=== PATIENT | male | born 1955 | race Caucasian/White ===

== ENCOUNTER 2024-07-07 13:43 | Outpatient (CLI) | payer MEDICARE, SELFPAY ==
[2024-07-07 14:24] LABS: Basophils Absolute Auto 0.1 K/mm3 (0.0-0.1); Basophils Percent Auto 0.8 % (0.2-1.2); Eosinophils Absolute Auto 0.2 K/mm3 (0-0.3); Eosinophils Percent Auto 2.4 % (0-4.4); Hematocrit 36.6 % (42.0-52.0); Hemoglobin 12.6 g/dL (14.0-18.0); Immature Granulocyte Absolute 0.02 K/mm3 (0.00-0.031); Immature Granulocyte Percent A 0.3 % (0-0.5); Lymphocytes Absolute Auto 1.53 K/mm3 (0.9-3.2); Lymphocytes Percent Auto 23.3 % (18.3-44.2); Mean Corpuscular HGB Conc 34.4 g/dl (32-36); Mean Corpuscular Hemoglobin 31.6 pg (26-34); Mean Corpuscular Volume 91.7 fl (80-100); Mean Platelet Volume 10.5 fl (7.4-10.4); Monocytes Absolute Auto 0.8 K/mm3 (0.1-0.6); Monocytes Percent Auto 12.6 % (2.6-8.5); Neutrophils Percent Auto 60.6 % (45.5-73.1); Platelet Count Result 181 k/mm3 (150-375); Red Blood Count 3.99 M/mm3 (4.6-6.20); Red Cell Distribution Width 13.8 % (11.5-14.5); White Blood Count 6.6 K/mm3 (4.5-10.0)
[2024-07-07 14:41] LABS: Alanine Aminotransferase 33 U/L (6-50); Albumin Level 4.2 g/dL (3.5-5.1); Alkaline Phosphatase 53 U/L (38-126); Anion Gap 7 mmol/L (4-12); Aspartate Amino Transferase 35 U/L (17-59); Bilirubin,Total 0.4 mg/dL (0.2-1.3); Blood Urea Nitrogen 14 mg/dL (9-20); Calcium 9.4 mg/dL (8.4-10.2); Carbon Dioxide 35 mmol/L (22-30); Chloride 93 mmol/L (98-107); Estimated Glomerular Filt Rate > 60; Glucose 95 mg/dL (65-110); Potassium 3.6 mmol/L (3.4-5.0); Sodium 135 mmol/L (137-145)
== END 2024-07-07 13:44 | disposition home or self-care (01) ==
PROVIDERS: PCP Internal Medicine; Visit Provider Psychiatry & Neurology Neurology
DX: G40.909 Epilepsy, unspecified, not intractable, without status epilepticus (principal)
CPT/HCPCS: 36415; 80053; 80184; 85025

== ENCOUNTER 2025-05-25 09:42 | Emergency (ER) | payer MEDICARE, SELFPAY ==
--- NOTE | ~2025-05-25 | XR_ITS ---
XR chest 2V Ordering provider: Riaz Justice History: 70 years Male with . Weakness . Comparison: None. FINDINGS: MEDIASTINUM: The cardiac silhouette is not enlarged. LUNGS: No infiltrates, effusions or pneumothorax. OTHER: No free air under the diaphragm. Degenerative changes of the spine. IMPRESSION: No acute cardiopulmonary pathology. Reviewed, dictated and finalized at location A.
--- NOTE | ~2025-05-25 | CT_ITS ---
CT brain wo con Ordering provider: Filiberto Snider MD History: 70 years Male with . presyncope . Comparison: None. Technique: CT of the head without contrast. Radiation reduction technique utilized.The dose-length product was 605.33 mGy-cm. FINDINGS: BRAIN PARENCHYMA AND CSF SPACES: Mild leukoaraiosis and diffuse cortical atrophy. Mild atheromatous d isease. No midline shift, mass effect or hemorrhage. The brain parenchyma and CSF spaces are otherwi se normal. VISUALIZED PARANASAL SINUSES: Well aerated. Left nasal septal deviation. MASTOIDS: Well aerated. BONES: The bones appear intact. SOFT TISSUES: Visualized nasopharynx is normal. Superficial soft tissues are normal. IMPRESSION: No acute intracranial findings. Reviewed, dictated and finalized at location A.
[2025-05-25 09:45] VITALS: BP 119/70; PULSE 56; RESP 19; TEMP 36.6; O2SAT 97
--- NOTE | 2025-05-25 11:42 | ECG_ITS ---
Test Date: 2025-05-25 11:47:40 Measurements Intervals Delight Rate: 50 P: 22 TX: 221 QRS: 12 QRSD: 128 T: 55 QT: 442 QTc: 405 Interpretive Statements SINUS BRADYCARDIA WITH FIRST DEGREE AV BLOCK MINIMAL Q WAVES- LAT/HIGH LAT LEADS CONSIDER INFERIOR INFARCT, AGE INDETERMINATE ABNORMAL ECG No previous ECG available for comparison Electronically Signed On 05-25-2025 11:53:23 CDT by Agustin Fay D.O.
[2025-05-25 11:45] VITALS: BP 133/75; PULSE 52; RESP 17; O2SAT 98
--- OUTSIDE RECORDS SUMMARY | 2025-05-25 12:31 | XMS_ITS | Encounter Summary ---
Author Organization [facility] Address [address] [place] [address] Phone Care Team Providers Care Visualizer Name Role Phone De Ruffin MD Primary Care Provider [phone] Kranthi Vieira MD Unavailable [phone] Reason for Visit * Reason Onset Date Comments Preclinic labwork 05/25/2025 Encounter Details Date Type Department Care Team (Late st Contact Info) Description 05/25/2025 Telephone [facility] Cardiology [address] [place] [address] Kranthi Vieira MD [address] [address] Preclinic labwork Social History Tobacco Use Types Packs/Day Years Used Date Smoking Tobacco: Never Smokeless Tobacco: Former Chew Quit: 1973 Alcohol Use Standard Drinks/Week Comments No 0 (1 standard drink = 0.6 oz pur e alcohol) AUDIT-C Answer Date Recorded Q1: How often do you have a drink containing alcohol? Never 10/10/2024 Q2: How many drinks containi ng alcohol do you have on a typical day when you are drinking? Patient does not drink Frequency of Binge Drinking Not on file 09/26 Personal Safety Answer Date Recorded Have you ever been in or are you currently in a harmful physical or emotional relationship or is someone making you feel afraid or unsafe? 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 in [place] for blood work and lab order sent. * Telephone Encounter - Amira Delgado - 05/25/2025 10:35 AM CDT ----- Message from Nurse Amira Perdue sent at 06/05/2024 2:55 PM CDT ----- Pt is scheduled for 1yr ROV with Dr. Vieira 06/08/25. Dr. Vieira would like pt to have a FLP and BMP prior to his appt. Will need to contact pt to determine location and send orders. -Backplanet message sent to pt regarding requested labwork.-ks documented in this encounter Plan of Treatment Scheduled Procedures Name Priority Associated Diagnoses Date/Ti me ESOPHAGOGASTRODUODENOSCOPY Anemia, unspecified type documented as of this encounter Visit Diagnoses Not on filedocumented in this encounter Care Teams Visualizer Relationship Specialty Start Date End Date De Ruffin MD PCP - General Internal Medicine 09/19/18 Kranthi Vieira MD Consulting Physician Cardiovascular Disease 12/17/23 documented as of this encounter
--- OUTSIDE RECORDS SUMMARY | 2025-05-25 12:31 | XMS_ITS | Clinical Summary ---
Author Organization [facility] Address [address] [place] [address] Care Team Providers Care Drinking Water Technician Name Role Phone De Ruffin MD Primary Care Provider [phone] Source Comments [facility],non-owned Affiliates and Associated Physician Practices is amultiple site organization consisting of ambulatory clinics and hospital sitesin [place], [place], [place] and [place]. This disclosure is being madepursuant to the Care Everywhere program and may not contain all information available regarding this patient. Last updated 18.[facility] Allergies No known active allergies Medications * Be aware that medications may not be up to date on this document. Alwaysverify current medications with the patient. 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 Gender Identity Not on file Sexual Orientation Not on file Last Filed Vital Signs Vital Sign Reading Time Taken Comments Blood Pressure 138/84 08/07/2017 11:14 AM CDT Pulse 52 08/07/2017 11:14 AM CDT Temperature 37.2 C (99 F) 08/07/2017 11:14 AM CDT Respiratory Rate 16 08/07/2017 11:14 AM CDT Oxygen Saturation 99% 08/07/2017 11:14 AM CDT Inhaled Oxygen Concentration - - Weight 106.6 kg (235 lb) 08/07/2017 11:14 AM CDT Height 182.9 cm (6') 08/07/2017 11:14 AM CDT Body Mass Index 31.87 08/07/2017 11:14 AM CDT Plan of Treatment Health Maintenance Due Date Last Done Comments COLOGUARD (AGES 45-75) - COL ON CA SCREENING 1954 COLON MONITORING 1954 COLONOSCOPY - COLON CA SCREENING 1954 CT COLONOGRAPHY - COLON CA SCREENING 1954 Colorectal Cancer Screening 1954 FIT - COLON CA SCREENING 1954 FLEX SIG - COLON CA SCREENING 1954 LIPID TESTING 1954 HEPATITIS C SCREENING 05/13/1972 DTAP/TDAP/TD VACCINES (1 - Tdap) 1973 PNEUMOCOCCAL VACCINE 50+ (1 of 1 - PCV) 2004 ZOSTER VACCINE (1 of 2) 2004 SCREENING FOR DIABETES 08/07/2017 AAA SCREENING 2019 COVID-19 VACCINE ( - 2023-2 5 season) 2024 DEPRESSION SCREENING 11/26/2024 INFLUENZA VACCINE (Season Ended) 2025 Respiratory Syncytial Virus (RSV) Vaccine Pt: or over 60 yrs (1 - 1-dose 75+ series) 2029 HEPATITIS B VACCINE Aged Out No longe r eligible based on patient's age to complete this topic HIB VACCINE Aged Out No longer eligi ble based on patient's age to complete this topic HPV VACCINE Aged Out No longer eligi ble based on patient's age to complete this topic MENINGOCOCCAL (Group B) VACC INE SHARED DECISION-MAKING Aged Out No longer eligibl e based on patient's age to complete this topic MENINGOCOCCAL GROUPS A/C/Y/W VACCINE Aged Out No longer eligible b ased on patient's age to complete this topic Insurance [place] [address] ANTH Care Teams Drinking Water Technician Relationship Specialty Start Date End Date De Ruffin MD PCP - General Internal Medicine 12/04/16
--- OUTSIDE RECORDS SUMMARY | 2025-05-25 12:31 | XMS_ITS | Continuity of Care Document ---
Author Organization [facility] Address [address] [facility] [facility] [address] [facility] [address] [place] [address] Phone Care Team Providers Care Steam Cleaning Machine Operator Name Role Phone Brandon Hernandez MD Unavailable Unavailable Advance Directives Directive Yes / No Effective Date File Name No Information Encounters Encounter Description Practice Location Reason(s) For Visit Diagnoses Date Provider Providers Copied on Encounter [facility], [address], [place], [place], [id number], [place] tel:[phone] [facility] No Information [address] [facility] [address], [place], [place], [id number], [place]. tel:[phone] Family History Family Member Type Diagnosis Age At Onset No Information Payers Payer name Insurance type Covered democrat ID Authoriza tion(s) No Information Social History Type Description Quantity Date Captured Comments Sex Male Smoking Status No Information Chief Complaint And Reason For Visit No Information Reason For Referral Reason For Referral No Information History Of Present Illness Encounter Date Complaint History Of Prese nt Illness No Information Functional Status Date Functional Assessmen t No Information Instructions Date Instruction Additional Infor mation No Information Assessments Type Assessment Date No Information Patient Care Teams Name Effective Dates (start - stop) Status Members No Information
--- OUTSIDE RECORDS SUMMARY | 2025-05-25 12:31 | XMS_ITS | Encounter Summary ---
Author Organization [facility] Address [address] [place] [address] Phone Care Team Providers Care Mechanical Product Design Engineer Name Role Phone De Ruffin MD Primary Care Provider [phone] Kranthi Vieira MD Unavailable [phone] Encounter Details Date Type Department Care Team (Late st Contact Info) Description 05/25/2025 Orders Only [facility] Cardiology [address] [facility] [address] [place] [address] Kranthi Vieira MD [address] [address] Hyperlipidemia, unspecified hyperlipidemia type (Primary Dx); Coronary artery disease involving marshall coronary artery of 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 angina pectoris; Essential hypertension Social History Tobacco Use Types Packs/Day Years [...] on file 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 Gender Identity Not on file Sexual Orientation Not on file documented as of this encounter Plan of Treatment Scheduled Orders Name Type Priority Associated Diagnoses Orde r Schedule Lipid panel Lab Routine Hyperlipidemia, unspecified hyperlipidemia type Coronary artery disease involving marshall coronary artery of 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 angina pectoris Essential hypertension Expected: 05/28/2025, Expires: 05/25/2026 Basic metabolic panel Lab Routine Hyperlipidemia, unspecified hyperlipidemia type Coronary artery disease involving marshall coronary artery of 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 angina pectoris Essential hypertension Expected: 05/28/2025, Expires: 05/25/2026 Scheduled Procedures Name Priority Associated Diagnoses Date/Ti me ESOPHAGOGASTRODUODENOSCOPY Anemia, unspecified type documented as of this encounter Visit Diagnoses Diagnosis Hyperlipidemia, unspecified hyperlipidemia type- Primary Coronary artery disease involving marshall coronary artery of 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 angina pectoris Essential hypertension Unspecified essential hypertension documented in this encounter Care Teams Mechanical Product Design Engineer Relationship Specialty Start Date End Date De Ruffin MD PCP - General Internal Medicine 09/19/18 Kranthi Vieira MD Consulting Physician Cardiovascular Disease 12/17/23 documented as of this encounter
--- OUTSIDE RECORDS SUMMARY | 2025-05-25 12:32 | XMS_ITS | Clinical Summary ---
Author Organization [facility] Address [address] [place] [address] Care Team Providers Care Patient Account Representative Name Role Phone De Ruffin MD Primary Care Provider [phone] Kranthi Vieira MD Unavailable [phone] Allergies Active Allergy Reactions Criticality Noted Date Comments Gabapentin Other (See comments) Low 10/29/2018 Made very anxious Lisinopril Cough Low 11/08/2022 Medications PHENobarbital (LUMINAL) 64.8 mg tablet 2.5 tablets (162 mg total) daily 5 8 Active aspirin 81 mg tablet Take 1 tablet (81 mg total) by mouth daily Active multivit-min/foli c/vit K/lycop (MEN'S MULTIVITAMIN ORAL) Take by mouth daily. Active vitamin E acetate (VITAMIN E ORAL) Take by mouth daily. Active psyllium, aspartame, SF (METAMUCIL SF) 3.4 gram packet Take 1 packet by mouth daily Active melatonin 5 mg tablet 2 tablets (10 mg total) daily Active atorvastatin (LIPITOR) 80 mg tablet TAKE 1 TABLET BY MOUTH EVERY DAY 90 tablet 3 4 Active amLODIPine (NORVASC) 5 mg tablet TAKE 1 TABLET (5 MG TOTAL) BY MOUTH DAILY. 90 tablet 3 4 Active chlorthalidone (HYGROTON) 25 mg tablet Take 1 tablet (25 mg total) by mouth daily 90 tablet 3 4 Active potassium chloride ER 20 mEq CR tablet TAKE 1 TABLET BY MOUTH 2 TIMES A DAY. 180 tablet 3 5 Active azithromycin (ZITHROMAX) 250 mg tabletIndications :Lower respiratory infection (e.g., bronchitis, pneumonia, pneumonitis, pulmonitis) Take 2 tablets the first day, then 1 tablet daily for 4 days. 6 tablet 5 Active losartan (COZAAR) 25 mg tablet TAKE 1 TABLET (25 MG TOTAL) BY MOUTH DAILY. 90 tablet 3 5 01/12/20 26 Active nitroglycerin (NITROSTAT) 0.[address] 1 tablet (0.4 mg total) under the tongue every 5 (five) minutes as needed for chest pain 25 tablet 2 5 Active carvediloL (COREG) 25 mg tablet TAKE 1 TABLET BY MOUTH TWICE A DAY WITH FOOD 180 tablet 3 5 Active isosorbide mononitrate ER (IMDUR) 30 mg 24 hr tablet TAKE 1 TABLET BY MOUTH EVERY DAY 90 tablet 3 5 Active Active Problems Problem Noted Date Diagnosed Date BMI 33.0-33.9,adult 12/14/2022 History of colon polyps 08/05/2021 Overview (08/05/2021): Added automatically from request for surgery [id number] Anemia 07/25/2021 Overview (07/25/2021): Added automatically from request for surgery [id number] Hyperlipidemia 09/21/2020 Assessment & Plan (12/02/2024 9:29 AM FROG FARMER): Continue current medication. Assessment & Plan (01/25/2021 10:14 AM FROG FARMER): Lipid at target Coronary artery disease invo lving omaha coronary artery of omaha heart without angina pectoris 09/21/2020 Assessment & Plan (12/02/2024 9:30 AM FROG FARMER): Patient remains on statin, beta-mack, nitrates, and antiplatelet therapy. Will continue as before Assessment & Plan (01/25/2021 10:14 AM FROG FARMER): Stable and doing well with no chest Essential hypertension 09/21/2020 Assessment & Plan (12/02/2024 9:30 AM FROG FARMER): Bp at target, continue medication for target directed therapy Assessment & Plan (01/25/2021 10:14 AM FROG FARMER): Blood pressure at target doing well Obstructive sleep apnea of adult 03/06/2017 SOB (shortness of breath) Encounters Date Type Department Care Team Description 05/25/2025 Orders Only [facility] [address] [place] [address] [address] [place] [phone] Kranthi Vieira MD Hyperlipidemia, unspecified hyperlipidemia type (Primary Dx); Coronary artery disease involving omaha coronary artery of omaha heart without angina pectoris; Essential hypertension 05/25/2025 Telephone [facility] [address] [place] [address] [address] [place] [phone] Kranthi Vieira MD Preclinic labwork 04/08/2025 Results Follow-Up [facility] [address] [place] [phone] De Ruffin MD CBC with auto differential, Differential, auto 04/07/2025 10:48 AM CDT - 04/07/2025 11:59 PM CDT Hospital Encounter [facility] [address] [place] [address] Anemia, unspecified type Discharge Disposition: Discharge to home or self care 04/07/2025 10:45 AM CDT Lab [facility] Outpatient Lab at [address] [address] from Last 3 Months Immunizations Immunization Administration Dates Next Due Influenza, Quadrivalent, Hig h Dose, Preservative Free, Intrr 09/21/2020 Influenza, Trivalent, High D ose, Split, Preservative Free, Intramuscular 10/01/2019 Pneumococcal Conjugate Pcv20 11/14/2022 Zoster, unspecified 03/26/2023 Surgical History Surgery Date Site/Laterality Comments OTHER SURGICAL HISTORY skin grafts INCISION AND DRAINAGE PERIRECTAL ABSCESS CARDIAC STENT PLACEMENT COLONOSCOPY UPPER GASTROINTESTINAL ENDOSCOPY EYE SURGERY 2014 Medical History Medical History Date Comments LUCERO on CPAP Cancer (HCC) 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 Hypertension Seizures (HCC) Hyperlipidemia 09/21/2020 Anemia Coronary artery disease H/O heart artery stent Myocardial infarction (HCC) Colon polyp Heart disease 2018 Sleep difficulties 2000 Family History Medical History Relation Name Comments Colon cancer Daughter Cancer Father Frandy Clark Sr Colon cancer Father Frandy Clark Sr Lung cancer Father Frandy Clark Sr Snoring Father Frandy Clark Sr Cancer Sister Mari Clark Pancreatic cancer Sister Mari Clark Relation Name Status Comments Daughter Father Frandy Clark Sr Sister Mari Clark Social History Tobacco Use Types Packs/Day Years Used Date Smoking Tobacco: Never Smokeless Tobacco: Former Chew Quit: 1972 Tobacco Cessation:Counseling Given: Not Answered Alcohol Use Standard Drinks/Week Comments No 0 [...] on file Legal Sex Male 8:58 AM FROG FARMER Gender Identity Not on file Sexual Orientation Not on file Obstetrics History Last Filed Vital Signs Vital Sign Reading Time Taken Comments Blood Pressure 120/70 01/09/2025 9:55 AM FROG FARMER Pulse 63 01/09/2025 9:55 AM FROG FARMER Temperature 37.2 C (99 F) 01/09/2025 9:55 AM FROG FARMER Respiratory Rate 20 01/09/2025 9:55 AM FROG FARMER Oxygen Saturation 98% 01/09/2025 9:55 AM FROG FARMER Inhaled Oxygen Concentration - - Weight 114.3 kg (252 lb) 01/09/2025 9:55 AM FROG FARMER Height 182.9 cm (6') 01/09/2025 9:55 AM FROG FARMER Body Mass Index 34.18 01/09/2025 9:55 AM FROG FARMER Plan of Treatment Scheduled Procedures Name Priority Associated Diagnoses Date/Ti me ESOPHAGOGASTRODUODENOSCOPY Anemia, unspecified type Health Maintenance Due Date Last Done Comments Depression Screening 1955 Hepatitis B Screening 1972 Well Visit 65+ 2019 Covid-19 Vaccine (4 - 2023-2 5 season) 2024 11/11/2021, 02/11/2021, 01/07/2021 Fall Risk Assessment 10/10/2025 10/10/2024 DTaP/Tdap/Td Vaccine (2 - Td or Tdap) 03/26/2033 03/26/2023 Colon Cancer Screening-Colonoscopy 10/10/2034 10/10/2024, 10/09/2024, 09/02/2021, Additional history exists Abdominal Aortic Aneurysm (A AA) Screen Completed 07/23/2019 Pneumococcal vaccine 65+ Completed 11/14/2022 Zoster Vaccine Completed 03/26/2023, 01/01/2023 Influenza Vaccine Completed 10/02/2024, , 11/14/2022, Additional history exists Colon Cancer Screening-CT Colonography Discontinued 10/10/2024, 10/09/2024, 09/02/2021, Additional history exists Colon Cancer Screening-DNA Stool Discontinued 10/10/2024, 10/09/2024, 09/02/2021, Additional history exists Colon Cancer Screening-FIT Discontinued 10/10, 10/09/2024, 09/02/2021, Additional history exists Colon Cancer Screening-Sigmoidoscopy Discontinued 10/10/2024, 10/09/2024, 09/02/2021, Additional history exists Hepatitis C Screening Completed 12/02/2024 Prostate Cancer Screening-PSA Discontinued , 11/15/2023, 05/10/2022, Additional history exists Medical Devices Implanted Type Area Senior Marketing Associate Device Identifier Shelf Expiration Date Model / Serial / Lot [employer] [id number] Xience Viridiana 2.75mm 23mm Rapid Exchange System Coronary Stent - [id number] - [id number] Implanted:Qty: 1 on 10/08/2018 by Remy Burgos MD at [facility] [employer] 06/23/2019 [id number] / [id number] Procedures Procedure Name Priority Date/Time Associated Diagnosis Comments DIFFERENTIAL AUTO Routine 04/07/2025 10: 48 AM CDT Anemia, unspecified type CBC WITH AUTO DIFFERENTIAL Routine 04/07/2025 10:48 AM CDT Anemia, unspecified type HEPATITIS C ANTIBODY Routine 12/02/2024 9:55 AM FROG FARMER Mixed hyperlipidemia Coronary artery disease involving omaha coronary artery of omaha heart without angina pectoris Essential hypertension Obstructive sleep apnea of adult Encounter for hepatitis C screening test for low risk patient Screening for prostate cancer PSA SCREEN Routine 12/02/2024 9:55 AM FROG FARMER Mixed hyperlipidemia Coronary artery disease involving omaha coronary artery of omaha heart without angina pectoris Essential hypertension Obstructive sleep apnea of adult Encounter for hepatitis C screening test for low risk patient Screening for prostate cancer COLONOSCOPY 10/10/2024 6:[address] ABDOMEN PELVIS WO CONTRAST Schedule Routine, Read Routine (OP Routine) 07/23/2019 11:24 AM CDT Abdominal pain, unspecified abdominal location from Last 3 Months or Most Recently Relevant to Health Maintenance Results * Differential, auto (04/07/2025 10:48 AM CDT) Neutrophil abs 3.37 1.50 - 6.50 K/cumm Imm gran abs 0.01 0.00 - 0.10 K/cumm [facility] Lymphocyte abs 1.43 0.80 - 3.30 K/cumm [facility] Monocyte abs 0.63 0.20 - 0.80 K/cumm [facility] Eosinophil abs 0.12 0.00 - 0.50 K/cumm [facility] Basophil abs 0.06 0.00 - 0.10 K/cumm [facility] Neutrophil pct 60.0 % [facility] Comment: Interpretive Data Percent cell count reference ranges are not reported, since discordance with absolute values may lead to misinterpretation of CBC data. Current Interpretive Data was last revised on 2018. Imm gran pct 0.2 % [facility] Comment: Interpretive Data Percent cell count reference ranges are not reported, since discordance with absolute values may lead to misinterpretation of CBC data. Current Interpretive Data was last revised on 2018. Lymphocyte pct 25.4 % [facility] Comment: Interpretive Data Percent cell count reference ranges are not reported, since discordance with absolute values may lead to misinterpretation of CBC data. Current Interpretive Data was last revised on 2018. Monocyte pct 11.2 % [facility] Comment: Interpretive Data Percent cell count reference ranges are not reported, since discordance with absolute values may lead to misinterpretation of CBC data. Current Interpretive Data was last revised on 2018. Eosinophil pct 2.1 % [facility] Comment: Interpretive Data Percent cell count reference ranges are not reported, since discordance with absolute values may lead to misinterpretation of CBC data. Current Interpretive Data was last revised on 2018. Basophil pct 1.1 % [facility] Comment: Interpretive Data Percent cell count reference ranges are not reported, since discordance with absolute values may lead to misinterpretation of CBC data. Current Interpretive Data was last revised on 2018. Blood 04/07/2025 10:4 8 AM CDT 04/07/2025 5:44 PM CDT us De Ruffin MD LAB BLOOD ORDERABLES Final Re sult [facility] [address] Department [place] [address] * (ABNORMAL) CBC with auto differential (04/07/2025 10:48 AM CDT) WBC 5.62 3.80 - 9.90 K/cumm Hgb 13.6 13.0 - 17.5 g/dL [facility] Hct 40.6 38.9 - 50.3 % [facility] Plt 172 150 - 400 K/cumm [facility] MPV 11.3 9.1 - 12.3 fL [facility] RBC 4.30 4.30 - 5.80 M/cumm [facility] MCV 94.4 81.3 - 96.4 fL [facility] MCH 31.6 27.1 - 33.3 pg [facility] MCHC 33.5 32.3 - 35.7 g/dL [facility] RDW CV 13.9 11.1 - 14.9 % [facility] RDW SD 48.5(H) 35.7 - 48.1 fL [facility] NRBC abs 0.00 0.00 - 0.01 K/cumm [facility] Blood 04/07/2025 10:4 8 AM CDT 04/07/2025 5:44 PM CDT De Ruffin MD LAB BLOOD ORDERABLES Final Re sult Performing Organization Address City/[facility]/ZIP Co de Phone Number [facility] [address] Department [place] [address] * PSA screen (12/02/2024 9:55 AM FROG FARMER) PSA-Total 1.66 <=6.20 ng/mL Comment: Interpretive Data AGE SEX REFERENCE INTERVAL 0 minutes-150 years Female None 0 minutes-49 years Male None 50-59 years Male 0-3.90 60-69 years Male 0-5.40 70-79 years Male 0-6.20 80-150 years Male 0-6.20 The Johnny PSA Total assay procedure was used. Results from different manufacturers or methods may not be comparable. Serial testing should be performed using the same method. Current interpretive data last revised 22. Blood 12/02/2024 9:55 AM FROG FARMER 12/02/2024 1:27 PM FROG FARMER De Ruffin MD LAB BLOOD ORDERABLES Final Re sult Performing Organization Address City/[facility] Co de Phone Number [facility] Department [place] [address] * Hepatitis C antibody Blood (12/02/2024 9:55 AM FROG FARMER) Hep C Ab Nonreactive Nonreactive Comment:Antibodies to HCV no t detected. Does NOT exclude the possibility of recent exposure to HCV. Current interpretive data was last revised on 22 Blood 12/02/2024 9:55 AM FROG FARMER 12/02/2024 1:27 PM FROG FARMER us De Ruffin MD LAB MICROBIOLOGY - GENERAL OR DERABLES Final Result [facility] Department [place] [address] * Colonoscopy (10/10/2024 6:46 AM FROG FARMER) Anatomical Region Laterality Modality Other Narrative Procedure Note Chance Wheeler MD - 10/10/2024 6:46 AM CST [facility] Patient Name: Toya Clark Procedure Date: 10/10/2024 6:46 AM Date of : 1955 Admit Type: Outpatient Age: 69 Gender: Male Attending MD: Chance Wheeler M.D. Room: [facility] ENDOSCOPY ROOM 1 Note Status: Finalized Procedure: Colonoscopy Indications: High risk colon cancer surveillance: Personalhistory of colonic polyps, family h/o CRC, poor prep onlast exam Referring MD: De Ruffin M.D. Providers: Chance Wheeler M.D. Medicines: Monitored Anesthesia Care Complications: No immediate complications. Estimated Blood Loss: Estimated blood loss: none. Procedure: Pre-Anesthesia Assessment: - Prior to the procedure, a History and Physicalwas performed, and patient medications, allergies and sensitivities were reviewed. The patient'stolerance of previous anesthesia was reviewed. - The risks and benefits of the procedure and the sedation options and risks were discussed with the patient. All questions were answered and informed consent was obtained. - Immediately prior to administration ofmedications, the patient was re-assessed for adequacy to receive sedatives. - Sedation was administered by an anesthesia professional. Deep sedation was attained. The benefits, risks and alternatives of theprocedure and sedation were discussed and informed consentwas obtained. All questions were answered. Please referto the signed informed consent document in the medical record. The scope was passed under direct vision.The [id number] endoscope was introduced through the anus and advanced to the cecum, identified by appendiceal orifice and ileocecal valve. The colonoscopy was performed without difficulty. The patient tolerated the procedure well. The qualityof the bowel preparation was adequate. The quality ofthe bowel preparation was evaluated using the BBPS([place] Bowel Preparation Scale) with scores of: RightColon = 3 (entire mucosa seen well with no residualstaining, small fragments of stool or opaque liquid),Transverse Colon = 2 (minor amount of residual staining, small fragments of stool and/or opaque liquid, but mucosa seen well) and Left Colon = 2 (minor amount of residual staining, small fragments of stool and/or opaque liquid, but mucosa seen well). The totalBBPS score equals 7. The quality of the bowelpreparation was good. The bowel preparation used was GoLYTELYvia extended prep with split dose instruction. Rightside was examined twice on withdrawal. Extreme diligence was made to ensure examination behind the foldusing good withdraw technique with adequate insufflationand washing of the debris. Bowel prep was administered using a split dose. Findings: Hemorrhoids were found on perianal exam. Small and large-mouthed diverticula were found in the sigmoid colonand descending colon. Non-bleeding external and internal hemorrhoids were found during retroflexion and during perianal exam. The hemorrhoids were large. The exam was otherwise without abnormality. No polyps seen Impression: - Hemorrhoids found on perianal exam. - Diverticulosis in the sigmoid colon and in the descending colon. - Non-bleeding external and internal hemorrhoids. - The examination was otherwise normal. - No specimens collected. Recommendation: - -Observe pt in recovery. - Discharge patient to home when stable. - Patient has a contact number available for emergencies. The signs and symptoms of potential delayed complications were discussed with thepatient. Return to normal activities tomorrow. Written discharge instructions were provided to thepatient. - Resume previous diet. - Continue present medications. - The findings and recommendations were discussedwith the patient. - In the unusual situation that you developabdominal pain, bleeding or other significant problems inthe days following this procedure please call my office [phone]). After hours and eveningsplease call [phone] and speak to the GI fellow oncall fellow. Please tell the fellow that Dr. Wheeler did your procedure and that you were instructed to have the fellow call me or the physician covering for meto discuss the management of your condition. If youhave an urgent problem, please go to the nearestemergency room and have the ER doctor call my office duringthe day or the GI fellow after hours and weekends to arrange admission or transfer to our facility.Please bring this report with you if you go to theemergency room. - Repeat colonoscopy in 5 years for surveillance w2 day prep. Attending Participation: I personally performed the entire procedure. Electronically signed by Chance Wheeler MD Chance Wheeler M.D. 10/10/2024 8:06:27 AM . Number of Addenda: 0 Note Initiated On: 10/10/2024 6:46 AM Chance Wheeler MD ENDOSCOPY PROCEDURES E dited Result - Final * CT Abdomen Pelvis WO Contrast (07/23/2019 11:24 AM CDT) Anatomical Region Laterality Modality Body N/A Computed Tomogra phy 07/23/2019 11:5 0 AM CDT Impressions 07/23/2019 1:11 PM CDT Cholelithiasis, without evidence of cholecystitis. Dictated by: Malissa Mello M.D. The radiology attending physician has personally reviewed this study, and had reviewed and/or edited this written report and agrees with it. Electronically signed by: Andrzej Claros M.D. Narrative 07/23/2019 1:11 PM CDT EXAMINATION: CT ABDOMEN AND PELVIS WITHOUT CONTRAST HISTORY: 64-year-old man with abdominal pain. TECHNIQUE: Multiple CT images of the abdomen and pelvis were performed according to the standard protocol without intravenous contrast. COMPARISON: None. FINDINGS: The scanned lung bases are normal. Heart size is normal. There is no pericardial or pleural effusion. The liver is normal in size. There is no focal hepatic lesion. There is no intra or extrahepatic biliary ductal dilatation. There is a 1.3 x 1.8 cm stone within the gallbladder neck. No evidence of cholecystitis. The portal vein is patent. The stomach, adrenal glands, pancreas, and spleen are normal. The kidneys have a normal unenhanced appearance, and there is no focal renal lesion. There is no hydronephrosis. The urinary bladder appears normal. Tiny 6 mm hypoattenuating lesion in the distal ileum and 9 mm hypoattenuating lesions likely in the jejunum, which may be ingested versus lipomas. The bowel is normal caliber. There is extensive diverticulosis, without evidence of diverticulitis. The appendix is visualized and normal. There is no free air or fluid. There is no mesenteric, retroperitoneal or pelvic lymphadenopathy. No vascular abnormalities. There is no fracture or suspicious osseous lesion. Procedure Note Andrzej Claros MD - 07/23/2019 EXAMINATION: CT ABDOMEN AND PELVIS WITHOUT CONTRAST HISTORY: 64-year-old man with abdominal pain. TECHNIQUE: Multiple CT images of the abdomen and pelvis were performed according to the standard protocol without intravenous contrast. COMPARISON: None. FINDINGS: The scanned lung bases are normal. Heart size is normal. There is no pericardial or pleural effusion. The liver is normal in size. There is no focal hepatic lesion. There is no intra or extrahepatic biliary ductal dilatation. There is a 1.3 x 1.8 cm stone within the gallbladder neck. No evidence of cholecystitis. The portal vein is patent. The stomach, adrenal glands, pancreas, and spleen are normal. The kidneys have a normal unenhanced appearance, and there is no focal renal lesion. There is no hydronephrosis. The urinary bladder appears normal. Tiny 6 mm hypoattenuating lesion in the distal ileum and 9 mm hypoattenuating lesions likely in the jejunum, which may be ingested versus lipomas. The bowel is normal caliber. There is extensive diverticulosis, without evidence of diverticulitis. The appendix is visualized and normal. There is no free air or fluid. There is no mesenteric, retroperitoneal or pelvic lymphadenopathy. No vascular abnormalities. There is no fracture or suspicious osseous lesion. IMPRESSION: Cholelithiasis, without evidence of cholecystitis. Dictated by: Malissa Mello M.D. The radiology attending physician has personally reviewed this study, and had reviewed and/or edited this written report and agrees with it. Electronically signed by: Andrzej Claros M.D. De Ruffin MD IMG CT PROCEDURES Final Resul t from Last 3 Months or Most Recently Relevant to Health Maintenance Insurance [facility] MEDICARE [facility] MEDICARE [facility] OPEN [facility] HMO/PPO Address: [facility] [id number] [place] [address] [facility] [employer] MEDIC[facility] T MEDICARE Advance Directives For more information, please contact: [phone] * Full Code (Latest Code Status on File) Date Activated Date Inactivated Comments 10/10/2024 6:46 AM 10/10/2024 12:41 PM * Full Code Date Activated Date Inactivated Comments 10/09/2024 7:39 AM 10/09/2024 12:59 PM * Full Code Date Activated Date Inactivated Comments 09/02/2021 10:12 AM 09/02/2021 4:27 PM * Full Code Date Activated Date Inactivated Comments 08/03/2021 1:17 PM 08/03/2021 7:25 PM * Full Code Date Activated Date Inactivated Comments 10/08/2018 1:21 PM 10/08/2018 7:21 PM Care Teams Patient Account Representative Relationship Specialty Start Date End Date De Ruffin MD PCP - General Internal Medicine 09/19/18 Kranthi Vieira MD Consulting Physician Cardiovascular Disease 12/17/23
--- OUTSIDE RECORDS SUMMARY | 2025-05-25 12:32 | XMS_ITS | Referral Summary ---
Author Organization [facility] Address [address] [place] [address] Care Team Providers Care Estate Agent Name Role Phone De Ruffin MD Primary Care Provider Kranthi Vieira MD Unavailable [phone] Encounters Date Type Department Care Team Description 05/25/[address] [facility] Cardiology [address] [place] [address] [address] Kranthi Vieira MD Hyperlipidemia, unspecified hyperlipidemia type (Primary Dx); Coronary artery disease involving ruby coronary artery of ruby heart without angina pectoris; Essential hypertension 05/25/[address] [facility] Cardiology [address] [place] [address] [address] Kranthi Vieira MD Preclinic labwork 04/08/2025 Results Follow-Up [facility] [address] [place] [address] [place] [phone] De Ruffin MD CBC with auto differential, Differential, auto 04/07/2025 10:48 AM CDT - 04/07/2025 11:59 PM CDT Hospital Encounter [address] [address] Anemia, unspecified type Discharge Disposition: Discharge to home or self care 04/07/2025 10:[address] [facility] Outpatient Lab at [address] [address] from Last 3 Months Allergies Active Allergy Reactions Criticality Noted Date [...] (08/05/2021): Added automatically from request for surgery [id number] Anemia 07/25/2021 Overview (07/25/2021): Added automatically from request for surgery [id number] Hyperlipidemia 09/21/2020 Assessment & Plan (12/02/2024 9:29 AM MANAGER MEDICAID): Continue current medication. Assessment & Plan (01/25/2021 10:14 AM MANAGER MEDICAID): Lipid at target Coronary artery disease invo lving ruby coronary artery of ruby heart without angina pectoris 09/21/2020 Assessment & Plan (12/02/2024 9:30 AM MANAGER MEDICAID): Patient remains on statin, beta-mack, nitrates, and antiplatelet therapy. Will continue as before Assessment & Plan (01/25/2021 10:14 AM MANAGER MEDICAID): Stable and doing well with no chest Essential hypertension 09/21/2020 Assessment & Plan (12/02/2024 9:30 AM MANAGER MEDICAID): Bp at target, continue medication for target directed therapy Assessment & Plan (01/25/2021 10:14 AM MANAGER MEDICAID): Blood pressure at target doing well Obstructive sleep apnea of adult 03/06/2017 SOB (shortness of breath) Immunizations Immunization Administration Dates Next Due Influenza, Quadrivalent, Hig h Dose, Preservative Free, Intrr 09/21/2020 Influenza, Trivalent, High D ose, Split, Preservative Free, Intramuscular 10/01/2019 Pneumococcal Conjugate Pcv20 11/14/2022 Zoster, unspecified 03/26/2023 Social History Tobacco Use Types Packs/Day Years [...] on file Legal Sex Male 8:58 AM MANAGER MEDICAID Gender Identity Not on file Sexual Orientation Not on file Last Filed Vital Signs Vital Sign Reading Time Taken Comments Blood Pressure 120/70 01/09/2025 9:55 AM MANAGER MEDICAID Pulse 63 01/09/2025 9:55 AM MANAGER MEDICAID Temperature 37.2 C (99 F) 01/09/2025 9:55 AM MANAGER MEDICAID Respiratory Rate 20 01/09/2025 9:55 AM MANAGER MEDICAID Oxygen Saturation 98% 01/09/2025 9:55 AM MANAGER MEDICAID Inhaled Oxygen Concentration - - Weight 114.3 kg (252 lb) 01/09/2025 9:55 AM MANAGER MEDICAID Height 182.9 cm (6') 01/09/2025 9:55 AM MANAGER MEDICAID Body Mass Index 34.18 01/09/2025 9:55 AM MANAGER MEDICAID Plan of Treatment Scheduled Procedures Name Priority Associated Diagnoses Date/Ti me ESOPHAGOGASTRODUODENOSCOPY Anemia, unspecified type Medical Devices Implanted Type Area Certified Peer Specialist Device Identifier Shelf Expiration Date Model / Serial / Lot [employer] [id number] Xience Viridiana 2.75mm 23mm Rapid Exchange System Coronary Stent - [id number] - [id number] Implanted:Qty: 1 on 10/08/2018 by Remy Burgos MD at [facility] [employer] 06/23/2019 [id number] / [id number] / [id number] Procedures Procedure Name Priority Date/Time Associated Diagnosis Comments DIFFERENTIAL AUTO Routine 04/07/2025 10: 48 AM CDT Anemia, unspecified type CBC WITH AUTO DIFFERENTIAL Routine 04/07/2025 10:48 AM CDT Anemia, unspecified type HEPATITIS C ANTIBODY Routine 12/02/2024 9:55 AM MANAGER MEDICAID Mixed hyperlipidemia Coronary artery disease involving ruby coronary artery of ruby heart without angina pectoris Essential hypertension Obstructive sleep apnea of adult Encounter for hepatitis C screening test for low risk patient Screening for prostate cancer PSA SCREEN Routine 12/02/2024 9:55 AM MANAGER MEDICAID Mixed hyperlipidemia Coronary artery disease involving ruby coronary artery of ruby heart without angina pectoris Essential hypertension Obstructive sleep apnea of adult Encounter for hepatitis C screening test for low risk patient Screening for prostate cancer COLONOSCOPY 10/10/2024 6:[address] ABDOMEN PELVIS WO CONTRAST Schedule Routine, [...] abs 0.06 0.00 - 0.10 K/cumm [facility] Neutrophil pct 60.0 % [facility] Comment: Interpretive Data Percent cell count reference ranges are not reported, since discordance with absolute values may lead to misinterpretation of CBC data. Current Interpretive Data was last revised on 2018. Imm gran pct 0.2 % [facility] Comment: Interpretive Data Percent cell count reference ranges are not reported, since discordance with absolute values may lead to misinterpretation of CBC data. Current Interpretive Data was last revised on 2018. Lymphocyte pct 25.4 % [facility] Comment: Interpretive Data Percent cell count reference ranges are not reported, since discordance with absolute values may lead to misinterpretation of CBC data. Current Interpretive Data was last revised on 2018. Monocyte pct 11.2 % [facility] Comment: Interpretive Data Percent cell count reference ranges are not reported, since discordance with absolute values may lead to misinterpretation of CBC data. Current Interpretive Data was last revised on 2018. Eosinophil pct 2.1 % [facility] Comment: Interpretive Data Percent cell count reference ranges are not reported, since discordance with absolute values may lead to misinterpretation of CBC data. Current Interpretive Data was last revised on 2018. Basophil pct 1.1 % [facility] Comment: Interpretive Data Percent cell count reference ranges are not reported, since discordance with absolute values may lead to misinterpretation of CBC data. Current Interpretive Data was last revised on 2018. Blood 04/07/2025 10:4 8 AM CDT 04/07/2025 5:44 PM CDT us De Ruffin MD LAB BLOOD ORDERABLES Final Re sult [facility] [address] [place] [address] * (ABNORMAL) CBC with auto differential (04/07/2025 10:48 AM CDT) WBC 5.62 3.80 - 9.90 K/cumm Hgb 13.6 13.0 - 17.5 g/dL [facility] Hct 40.6 38.9 - 50.3 % [facility] Plt 172 150 - 400 K/cumm [facility] MPV 11.3 9.1 - 12.3 fL [facility] RBC 4.30 4.30 - 5.80 M/cumm [facility] MCV 94.4 81.3 - 96.4 fL [facility] MCH 31.6 27.1 - 33.3 pg [facility] MCHC 33.5 32.3 - 35.7 g/dL [facility] RDW CV 13.9 11.1 - 14.9 % [facility] RDW SD 48.5(H) 35.7 - 48.1 fL [facility] NRBC abs 0.00 0.00 - 0.01 K/cumm [facility] Blood 04/07/2025 10:4 8 AM CDT 04/07/2025 5:44 PM CDT eD Ruffin MD LAB BLOOD ORDERABLES Final Re sult Performing Organization Address City/[facility] Co de Phone Number DEANNE [address] [facility] Department [place] [address] * PSA screen (12/02/2024 9:55 AM MANAGER MEDICAID) PSA-Total 1.66 <=6.20 ng/mL Comment: Interpretive Data [...] last revised 22. Blood 12/02/2024 9:55 AM MANAGER MEDICAID 12/02/2024 1:27 PM MANAGER MEDICAID De Ruffin MD LAB BLOOD ORDERABLES Final Re sult Performing Organization Address City/[facility] Co de Phone Number DEANNE [facility] Department [place] [address] * Hepatitis C antibody Blood (12/02/2024 9:55 AM MANAGER MEDICAID) Hep C Ab Nonreactive Nonreactive Comment:Antibodies to HCV no t detected. Does NOT exclude the possibility of recent exposure to HCV. Current interpretive data was last revised on 22 Blood 12/02/2024 9:55 AM MANAGER MEDICAID 12/02/2024 1:27 PM MANAGER MEDICAID De Ruffin MD LAB MICROBIOLOGY - GENERAL OR DERABLES Final Result [facility] Department [place] [address] * Colonoscopy (10/10/2024 6:46 AM MANAGER MEDICAID) Anatomical Region Laterality Modality Other Narrative Procedure Note Chance Wheeler MD - 10/10/2024 6:46 AM CST [facility] ENDOSCOPY [facility] Patient Name: Toya Clark Procedure Date: 10/10/2024 6:46 AM Date of : 1955 Admit Type: Outpatient Age: 69 Gender: Male Attending MD: Chance Wheeler M.D. Room: [facility] ENDOSCOPY ROOM 1 Note Status: Finalized Procedure: [...] The scope was passed under direct vision.The CF [id number] endoscope was introduced through the anus and advanced to the cecum, identified by appendiceal orifice and ileocecal valve. The colonoscopy was performed without difficulty. The patient tolerated the procedure well. The qualityof the bowel preparation was adequate. The quality ofthe bowel preparation was evaluated using the BBPS([place] Bowel Preparation Scale) with scores of: RightColon [...] GoLYTELYvia extended prep with split dose instruction. Thomaside was examined twice on withdrawal. Extreme diligence [...] following this procedure please call my office [phone]). After hours and eveningsplease call [phone] and speak to the GI fellow oncall [...] 0 Note Initiated On: 10/10/2024 6:46 AM us Chance Wheeler MD ENDOSCOPY PROCEDURES E dited [...] Most Recently Relevant to Health Maintenance Insurance AETNA MEDICARE [facility] MEDICARE [facility] OPEN [facility] HMO/PPO Address: [facility] [id number] [place] [address] [facility] HMO AET MEDICARE MEDICARE Advance Directives For more information, please contact: [phone] * Full Code (Latest Code Status on [...] 1:21 PM 10/08/2018 7:21 PM Care Teams Estate Agent Relationship Specialty Start Date End Date De Ruffin MD PCP - General Internal Medicine 09/19/18 Kranthi Vieira MD Consulting Physician Cardiovascular Disease 12/17/23
--- OUTSIDE RECORDS SUMMARY | 2025-05-25 12:32 | XMS_ITS | Clinical Summary ---
Author Organization [facility] Address [address] [place] [address] Care Team Providers Care Mining Consultant Name Role Phone De Ruffin MD Primary Care Provider [phone] Allergies Active Allergy Reactions Criticality Noted Date Comments Gabapentin Hallucinations 10/30/2018 Medications PHENobarbital 64.8 MG tablet 10/22/2018 Acti ve atorvastatin 80 MG tablet 10/08/2018 Active nitroglycerin 0.4 MG SL tablet 10/04/2018 Ac tive isosorbide mononitrate ER 30 MG 24 hr tablet 10/29/2018 Active aspirin EC (ASPIRIN) 81 MG EC tablet Take 81 mg by mouth daily. Active melatonin 5 MG tablet 20 mg daily. Active Multiple Vitamins-Mineral s (MULTIVITAMIN ADULTS OR) Take by mouth daily. Active chlorthalidone 25 MG tablet TAKE ONE TABLET BY MOUTH ONCE DAILY 10/29/2019 Active psyllium (METAMUCIL FIBER) 51.7 % packet Take 1 packet by mouth daily. Active amlodipine 5 MG tablet Take 5 mg by mouth daily. 10/01/2019 Active vitamin E 400 UNIT capsule Take by mouth daily. Active carvedilol 25 MG tablet TAKE ONE TABLET BY MOUTH TWICE A DAY WITH MEALS 03/29/2020 Active Active Problems Problem Noted Date Diagnosed Date Hypertension 03/06/2017 Obstructive sleep apnea of adult 03/06/2017 Social History Tobacco Use Types Packs/Day Years Used Date Smoking Tobacco: Never Smokeless Tobacco: Never Alcohol Use Standard Drinks/Week Comments No 0 (1 standard drink = 0.6 oz pur e alcohol) AUDIT-C Answer Date Recorded Frequency of Alcohol Consumption Never 10/30/2018 Average Number of Drinks Not on file 018 Frequency of Binge Drinking Not on file 03/2018 Sex and Gender Information Value Date Recorded Sex Assigned at Not on file Legal Sex Male 7:59 PM CDT Gender Identity Not on file Sexual Orientation Not on file Last Filed Vital Signs Vital Sign Reading Time Taken Comments Blood Pressure 134/76 05/04/2020 9:04 AM CDT Pulse 58 05/04/2020 9:04 AM CDT Temperature 36.8 C (98.2 F) 05/04/2020 9:04 AM CDT Respiratory Rate 16 05/04/2020 9:04 AM CDT Oxygen Saturation 97% 05/04/2020 9:04 AM CDT Inhaled Oxygen Concentration - - Weight 109.8 kg (242 lb) 05/04/2020 9:04 AM CDT Height 182.9 cm (6') 05/04/2020 9:04 AM CDT Body Mass Index 32.82 05/04/2020 9:04 AM CDT Plan of Treatment Health Maintenance Due Date Last Done Comments Colorectal Cancer Screening Colonoscopy (10 Years) 1955 Hepatitis C 1972 DTaP, Tdap and Td Vaccines ( 1 - Tdap) 1973 Pneumococcal Vaccine: 50+ Ye ars (1 of 1 - PCV) 2004 Zoster Vaccines (1 of 2) 2004 Annual Medicare Wellness Visit 2019 COVID-19 Vaccine (1 - 2023-2 5 season) 2024 RSV Immunization or 60+ Years (1 - 1-dose 75+ series) 2029 Meningococcal B Vaccine Aged Out No l onger eligible based on patient's age to complete this topic Meningococcal Vaccine Aged Out No lianna ciro eligible based on patient's age to complete this topic RSV Immunizations Under 20 Months Aged Out No longer eligible based on patient's age to complete this topic Insurance AETNA Care Teams Mining Consultant Relationship Specialty Start Date End Date De Ruffin MD [facility] [address] [place] [id number] PCP - General INTERNAL MEDICINE 02/10/19
--- OUTSIDE RECORDS SUMMARY | 2025-05-25 12:32 | XMS_ITS | Encounter Summary ---
Author Organization [facility] Address [address] [place] [address] Care Team Providers Care Web Page Designer Name Role Phone De Ruffin MD Primary Care Provider [phone] Kranthi Vieira MD Unavailable [phone] Encounter Details Date Type Department Care Team (Late st Contact Info) Description 10/04/[address] [facility] EpicCare Link De Ruffin MD [address] [address] Social History Tobacco Use Types Packs/Day Years Used Date Smoking Tobacco: Never Smokeless Tobacco: Former Sex and Gender Information Value Date Recorded Sex Assigned at Not on file Legal Sex Male 8:58 AM DISTANCE LEARNING UNIT LEADER Gender Identity Not on file Sexual Orientation Not on file documented as of this encounter Plan of Treatment Scheduled Procedures Name Priority Associated Diagnoses Date/Ti me ESOPHAGOGASTRODUODENOSCOPY Anemia, unspecified type documented as of this encounter Visit Diagnoses Not on filedocumented in this encounter Additional Health Concerns Infection Onset Date Last Indicated Resolved Time COVID: Suspected 01/09/2025 01/09/2025 01/09/2025 10:25 AM DISTANCE LEARNING UNIT LEADER documented as of this encounter Care Teams Web Page Designer Relationship Specialty Start Date End Date De Ruffin MD PCP - General Internal Medicine 09/19/18 Kranthi Vieira MD Consulting Physician Cardiovascular Disease 12/17/23 documented as of this encounter
[2025-05-25 12:39] LABS: Basophils Absolute Auto 0.1 K/mm3 (0.0-0.1); Basophils Percent Auto 0.9 % (0.2-1.2); Eosinophils Absolute Auto 0.2 K/mm3 (0-0.3); Eosinophils Percent Auto 2.7 % (0-4.4); Hematocrit 38.3 % (42.0-52.0); Hemoglobin 13.3 g/dL (14.0-18.0); Immature Granulocyte Absolute 0.01 K/mm3 (0.00-0.031); Immature Granulocyte Percent A 0.2 % (0-0.5); Lymphocytes Absolute Auto 1.49 K/mm3 (0.9-3.2); Lymphocytes Percent Auto 27.1 % (18.3-44.2); Mean Corpuscular HGB Conc 34.7 g/dl (32-36); Mean Corpuscular Volume 92.3 fl (80-100); Mean Platelet Volume 9.7 fl (7.4-10.4); Monocytes Absolute Auto 0.9 K/mm3 (0.1-0.6); Monocytes Percent Auto 15.5 % (2.6-8.5); Neutrophils Percent Auto 53.6 % (45.5-73.1); Platelet Count Result 160 k/mm3 (150-375); Red Blood Count 4.15 M/mm3 (4.6-6.20); Red Cell Distribution Width 13.3 % (11.5-14.5); White Blood Count 5.5 K/mm3 (4.5-10.0)
[2025-05-25 12:41] LABS: Add Urine Microscopic? NO; Appearance Urine Clear (Clear); Bilirubin Urine Negative (Negative); Blood Urine Negative (Negative); Color Urine Yellow (Yellow); Glucose Urine UA Negative (Negative); Ketones Urine Negative (Negative); Leukocyte Esterase Ur Negative LEU/UL (Negative); Nitrate Urine Negative (Negative); Protein Urine Negative (Negative); Urobilinogen Urine 0.2 mg/dL (<2.0); pH Urine 7.5 (5.0-9.0)
[2025-05-25 12:50] LABS: Alanine Aminotransferase 58 U/L (6-50); Albumin Level 4.2 g/dL (3.5-5.1); Alkaline Phosphatase 42 U/L (38-126); Anion Gap 7 mmol/L (4-12); Aspartate Amino Transferase 51 U/L (17-59); Bilirubin,Total 0.4 mg/dL (0.2-1.3); Blood Urea Nitrogen 10 mg/dL (9-20); Calcium 9.1 mg/dL (8.4-10.2); Carbon Dioxide 31 mmol/L (22-30); Chloride 94 mmol/L (98-107); Estimated CRCL calculation 91 ml/min; Estimated Glomerular Filt Rate > 60; Glucose 100 mg/dL (65-110); Potassium 3.5 mmol/L (3.4-5.0); Sodium 132 mmol/L (137-145); Total Protein 7.7 g/dL (6.3-8.2)
[2025-05-25 13:01] LABS: Troponin I 0.014 ng/mL (0.000-0.034)
--- NOTE | 2025-05-25 13:20 | ED.CHESTPAIN ---
HPI - Chest Pain General Chief Complaint: Weakness Stated Complaint: near syncope episodes on Sunday Time Seen by Provider: 05/25/25 11:59 History of Present Illness HPI narrative: 70-year-old male with a past medical history including coronary disease with a stent as well as epilepsy with seizure disorder on phenobarbital daily. Patient presents the emergency department after having several episodes of what he describes as auras precipitating his usual seizures but he did not have a full seizure activity. He felt a wave of nausea and a ocampo of hot sensations with Anoro and a headache. This happened 3 separate x2 days ago but he has been asymptomatic for last 48 hours. He called his primary care provider today to establish a follow-up visit he was referred to the emergency department for evaluation. He does have a neurologist and saw them this year already without any changes to his medications or doses. No recent lifestyle changes or dietary changes. He was otherwise in his normal state of health. Patient and family report that he did not have any actual seizure activity and no generalized tonic clonic shaking her loss of consciousness. Patient felt fatigue after the episode each time and feels comfortable now without any symptoms. He has not had any symptoms for 2 days. He is not any acute distress, denies chest pain, abdominal pain, fever, chills, headache, vision changes, nausea, vomiting abdominal pain, weakness, fatigue. No neurological deficits or injury/falls. Related Data Home Medications ?Medication ?Instructions ?Recorded ?Confirmed ?Last Taken ?Type aspirin 81 mg tablet,delayed 81 mg PO DAILY 06/28/21 07/04/21 Unknown History release atorvastatin 80 mg tablet 80 mg PO DAILY 06/28/21 07/04/21 Unknown History chlorthalidone 25 mg tablet 25 mg PO DAILY 06/28/21 07/04/21 Unknown History psyllium husk 3.4 gram/5.4 gram 1 tbsp PO DAILY 06/28/21 07/04/21 Unknown History oral powder (Metamucil) amlodipine 5 mg tablet 5 mg PO DAILY 07/11/22 Unknown History isosorbide mononitrate 30 mg 30 mg PO DAILY 07/11/22 Unknown History tablet,extended release 24 hr lisinopril 10 mg tablet 10 mg PO DAILY 07/11/22 Unknown History melatonin 10 mg capsule 20 mg PO QHS 07/11/22 Unknown History kbfejoyo-vu-cyrqt 300 mcg-K 60 1 tablet PO DAILY 07/11/22 Unknown History mcg-lycop 600 mcg-lutein 300 mcg tablet (Men 50 Plus Multivitamin) nitroglycerin 0.4 mg sublingual 0.4 mg sublingual ONCE PRN 07/11/22 Unknown History tablet vitamin E mixed 400 unit capsule 400 unit PO DAILY 07/11/22 Unknown History losartan 50 mg tablet 50 mg PO DAILY 03/21/23 Unknown History potassium chloride 20 mEq 20 meq PO BID 03/19/25 Unknown History tablet,extended release(part/cryst) (Klor-Con M) Allergies Allergy/AdvReac Type Severity Reaction Status Date / Time gabapentin Allergy Unknown Verified 03/19/25 14:45 [facility] [place] Past Medical History Medical History (Updated 05/25/25 @ 15:57 by Filiberto Snider MD) Coronary artery disease Insomnia Hyperlipidemia Hypertension Surgical History Surgical History History of heart artery stent Social History Social History Social History: Caffeine-coffee daily Smoking status: Never smoker Alcohol intake: never Substance use: never Substance use type: does not use Lack of Transportation: No Lack of Food: Never True Current Housing: I Have Housing Concerned About Future Housing: No Difficulty Paying Gas/Electric Bills: No Difficulty Paying for Meds: No Currently Unemployed: No Education: Associate Degree Difficulty w/ Childcare or Family Care: No Course Vital Signs Vital signs: Vital Signs Temperature 36.6 C 05/25/25 09:45 Pulse Rate 56 L 05/25/25 09:45 Respiratory Rate 19 05/25/25 09:45 Blood Pressure 119/70 05/25/25 09:45 Pulse Oximetry 97 05/25/25 09:45 Oxygen Delivery Room Air 05/25/25 09:45 Temperature 36.4 C 05/25/25 13:31 Pulse Rate 56 L 05/25/25 13:31 Respiratory Rate 18 05/25/25 13:31 Blood Pressure 133/75 05/25/25 11:45 Pulse Oximetry 96 05/25/25 13:31 Oxygen Delivery Room Air 05/25/25 11:45 MDM - Chest Pain MDM Narrative Medical decision making narrative: 70-year-old male with a past medical history including coronary disease with a stent as well as epilepsy with seizure disorder on phenobarbital daily. Patient presents the emergency department after having several episodes of what he describes as auras precipitating his usual seizures but he did not have a full seizure activity. He felt a wave of nausea and a ocampo of hot sensations with Anoro and a headache. This happened 3 separate x2 days ago but he has been asymptomatic for last 48 hours. He called his primary care provider today to establish a follow-up visit he was referred to the emergency department for evaluation. He does have a neurologist and saw them this year already without any changes to his medications or doses. No recent lifestyle changes or dietary changes. He was otherwise in his normal state of health. Patient and family report that he did not have any actual seizure activity and no generalized tonic clonic shaking her loss of consciousness. Patient felt fatigue after the episode each time and feels comfortable now without any symptoms. He has not had any symptoms for 2 days. He is not any acute distress, denies chest pain, abdominal pain, fever, chills, headache, vision changes, nausea, vomiting abdominal pain, weakness, fatigue. No neurological deficits or injury/falls. Patient is hemodynamically stable without any blood pressure concerns, sinus bradycardia without any significant derangements, no tachypnea, fever, hypoxia. Unremarkable neurological assessment and he is awake alert oriented. He has no symptoms or complaints at this time. Suspicion presently is that he potentially had auras proceeding a seizure without generalized activity especially since that resembles last time he had a seizure many years ago. This could be due to electrolyte abnormalities, dehydration, less likely infectious pathology or intracranial pathology. A broad workup was ordered this time including CBC, CMP, troponin, EKG, chest x-ray and a CT of the head. He has been asymptomatic for 2 days and no changes to his medications are needed at this time. He is on structural welder and remains hemodynamically stable and we discussed outpatient Neurology follow-up after these ER visit today which patient and family were receptive to. Workup shows no leukocytosis or significant anemia. Normal platelet count. Electrolytes show some mildly low sodium and chloride but not severe range. Electrolytes are unremarkable otherwise, normal kidney function, normal glucose, normal LFTs. Troponin negative x2. Urinalysis unremarkable. Chest x-ray shows no cardiopulmonary disease. EKG shows sinus bradycardia, first-degree AV block, no ST segment elevations or depressions. Patient is asymptomatic here during his evaluation in given his unremarkable labs and imaging he can be safely followed up with on outpatient basis with his neurologist as well as PCP which he has an appointment for and he was given return precautions. Medical Records Data Attestation: I reviewed the patient's medical records. Lab Data Attestation: I reviewed the patient's lab results. 05/25/25 12:32 05/25/25 12:32 Labs: Lab Results 05/25/25 05/25/25 Range/Units 12:32 15:03 WBC 5.5 (4.5-10.0) K/mm3 RBC 4.15 L (4.6-6.20) M/mm3 Hgb 13.3 L (14.0-18.0) g/dL Hct 38.3 L (42.0-52.0) % MCV 92.3 (80-100) fl MCH 32.0 (26-34) pg MCHC 34.7 (32-36) g/dl RDW 13.3 (11.5-14.5) % Plt Count 160 (150-375) k/mm3 MPV 9.7 (7.4-10.4) fl Immature Gran % (Auto) 0.2 (0-0.5) % Neut % (Auto) 53.6 (45.5-73.1) % Lymph % (Auto) 27.1 (18.3-44.2) % Christian % (Auto) 15.5 H (2.6-8.5) % Eos % (Auto) 2.7 (0-4.4) % Baso % (Auto) 0.9 (0.2-1.2) % Lymph # (Auto) 1.49 (0.9-3.2) K/mm3 Christian # (Auto) 0.9 H (0.1-0.6) K/mm3 Eos # (Auto) 0.2 (0-0.3) K/mm3 Baso # (Auto) 0.1 (0.0-0.1) K/mm3 Abs Immat Gran (auto) 0.01 (0.00-0.031) K/mm3 Absolute Neuts (auto) 3.0 (1.3-6.7) K/mm3 Absolute Nucleated RBC 0.000 (0.0-0.012) K/mm3 Nucleated RBC % 0.0 (0.0-0.2) % Sodium 132 L (137-145) mmol/L Potassium 3.5 (3.4-5.0) mmol/L Chloride 94 L (98-107) mmol/L Carbon Dioxide 31 H (22-30) mmol/L Anion Gap 7 (4-12) mmol/L BUN 10 (9-20) mg/dL Creatinine 0.85 (0.7-1.3) mg/dL Estim Creat Clear Calc 91 ml/min Estimated GFR > 60 (59 - ) Glucose 100 (65-110) mg/dL Calcium 9.1 (8.4-10.2) mg/dL Total Bilirubin 0.4 (0.2-1.3) mg/dL AST 51 (17-59) U/L ALT 58 H (6-50) U/L Alkaline Phosphatase 42 (38-126) U/L Troponin I 0.014 0.012 (0.000-0.034) ng/mL Total Protein 7.7 (6.3-8.2) g/dL Albumin 4.2 (3.5-5.1) g/dL Urine Color Yellow (Yellow) Urine Appearance Clear (Clear) Urine pH 7.5 (5.0-9.0) Ur Specific [place] 1.010 (1.001-1.035) Urine Protein Negative (Negative) mg/dL Urine Glucose (UA) Negative (Negative) mg/dL Urine Ketones Negative (Negative) mg/dL Ur Blood (Man) Negative (Negative) Urine Nitrate Negative (Negative) Urine Bilirubin Negative (Negative) Urine Urobilinogen 0.2 (<2.0) mg/dL Leukocyte Esterase Rfl Negative (Negative) TATO/UL Imaging Data Attestation: I personally reviewed and interpreted this imaging study as follows: My impression: Impressions Head CT 05/25/25 12:33 IMPRESSION: No acute intracranial findings. Chest X-Ray 05/25/25 12:50 IMPRESSION: No acute cardiopulmonary pathology. Discharge Plan Discharge Clinical Impression: Near syncope, History of seizures Patient Disposition: Home Condition: Stable Instructions: Antibiotic Form, Epilepsy (DC), Near Syncope (ED) Additional Instructions: Your laboratory studies and imaging results your reassuring. Slight component of dehydration was noted on your electrolytes but otherwise unremarkable workup without any organ damage. CT scans and imaging studies are reassuring without any findings. Contact your primary care provider for close follow-up as well as your neurologist for repeat evaluation. If you exhibit repeat symptoms, new concerns or any emergencies please return to the ED. Follow-up outpatient and maintain good oral hydration. Patient Language: Belarusian Prescriptions: No Action losartan 50 mg tablet 50 mg PO DAILY potassium chloride [Klor-Con M20] 20 mEq tablet,ER particles/crystals 20 meq PO BID phenobarbital 64.8 mg tablet 64.8 mg PO .COMPLEX Qty: 180 1RF Rx Instructions: take 1 tablet in the morning and 1 bedtime chlorthalidone 25 mg tablet 25 mg PO DAILY Metamucil 3.4 gram/5.4 gram powder 1 tbsp PO DAILY Rx Instructions: mix into at least 8 oz of water or juice before administering atorvastatin 80 mg tablet 80 mg PO DAILY aspirin 81 mg tablet,delayed release (DR/EC) 81 mg PO DAILY amlodipine 5 mg tablet 5 mg PO DAILY isosorbide mononitrate 30 mg tablet extended release 24 hr 30 mg PO DAILY melatonin 10 mg capsule 20 mg PO QHS nitroglycerin 0.4 mg tablet, sublingual 0.4 mg sublingual ONCE PRN Rx Instructions: do not exceed 3 doses per episode Men 50 Plus Multivitamin 300-600-300 mcg tablet 1 tablet PO DAILY vitamin E mixed 400 unit capsule 400 unit PO DAILY lisinopril 10 mg tablet 10 mg PO DAILY Follow-up/Referrals: UNKNOWN,DOCTOR [Primary Care Provider] - Time of Disposition: 15:57
[2025-05-25 13:31] VITALS: PULSE 56; RESP 18; TEMP 36.4; O2SAT 96
--- NOTE | 2025-05-25 14:56 | ECG_ITS ---
Test Date: 2025-05-25 15:01:50 Measurements Intervals Murray Rate: 50 P: 25 AR: 217 QRS: 13 QRSD: 130 T: 43 QT: 466 QTc: 427 Interpretive Statements SINUS BRADYCARDIA WITH FIRST DEGREE AV BLOCK INTRAVENTRICULAR CONDUCTION DELAY MINIMAL Q WAVES- INF/LAT LEADS BORDERLINE ECG Compared to ECG 05/25/2025 11:47:40 No significant changes Electronically Signed On 05-25-2025 15:30:54 CDT by Agustin Fay D.O.
[2025-05-25 15:36] LABS: Troponin I 0.012 ng/mL (0.000-0.034)
== END 2025-05-25 16:04 | disposition home or self-care (01) ==
PROVIDERS: Emergency Medicine; Emergency Provider Student in an Organized Health Care Education/Training Program
DX: R55 Syncope and collapse (principal); G40.909 Epilepsy, unspecified, not intractable, without status epilepticus; I25.10 Atherosclerotic heart disease of native coronary artery without angina pectoris; E78.5 Hyperlipidemia, unspecified; I10 Essential (primary) hypertension; Z79.899 Other long term (current) drug therapy
CPT/HCPCS: 36415; 70450; 71046; 80053; 81003; 84484; 85025; 93005; 99284